=== PATIENT | male | born 1995 | race Hispanic/Latino ===

== ENCOUNTER 2022-07-21 16:35 | Emergency (ER) | payer OTHER ==
[~2022-07-21] VITALS: Ht 167.6 cm; Wt 99.8 kg
[2022-07-21] MEDS ORDERED: ACETAMINOPHEN 325 MG TAB PO ONE (17:00)
[2022-07-21] MEDS ORDERED: IBUPROFEN 400 MG TAB PO ONE (17:00)
[2022-07-21] MEDS ORDERED: IBUPROFEN 400 MG TAB ONE (17:09)
[2022-07-21] MEDS ORDERED: ACETAMINOPHEN 325 MG TAB ONE (17:09)
== END 2022-07-21 18:37 | disposition home or self-care (01) ==
LOC: ER 17:51
DX: R50.9 Fever, unspecified (principal); J10.1 Influenza due to other identified influenza virus with other respiratory manifestations; R51.9 Headache, unspecified; Z20.822 Contact with and (suspected) exposure to COVID-19; F17.210 Nicotine dependence, cigarettes, uncomplicated
CPT/HCPCS: 99283; U0002